=== PATIENT | female | born 1975 | race Caucasian/White ===

== ENCOUNTER → 2020-07-17 | Outpatient (CLI) | payer OTHER | END | disposition home or self-care (01) | LOC: LAB EV 18:24 → LAB SHORT 18:24 | DX: N76.0 Acute vaginitis (principal); R30.9 Painful micturition, unspecified | CPT/HCPCS: 87070; 87077; 87086; 87186; 87205 ==

== ENCOUNTER → 2025-03-21 | Outpatient (CLI) | payer OTHER | LOC: LAB SHORT 11:06 → LAB 11:06 | DX: N39.0 Urinary tract infection, site not specified (principal) | CPT/HCPCS: 87077; 87086; 87185; 87186 ==